=== PATIENT | male | born 1990 | race Caucasian/White ===

== ENCOUNTER 2017-08-26 03:22 | Emergency (ER) | payer OTHER ==
[~2017-08-26] VITALS: Ht 185.4 cm; Wt 110.0 kg
[~2017-08-26 03:22] MED LIST: BACL20TA PO; BUSP10TA PO; CYCL5TAB PO; GABA300C5 PO; MELO7.5T27 PO; OMEP20TA93 PO; SERT-129 PO; TRAM1CAP21 PO; TRAZ100T4 PO
[2017-08-26 03:24] VITALS: BP 121/77; PULSE 114; RESP 16; TEMP 98.3; O2SAT 96
--- NOTE | 2017-08-26 03:37 | PD ---
HPI Chief Complaint: Cold / Flu Symptoms Time Seen by Provider: 03:36 Travel History International Travel<30 days: No Contact w/Intl Traveler<30days: No Traveled to known affect area: No History of Present Illness HPI 27-year-old male presents to emergency department for evaluation of fever, sore throat, cough and chest congestion worsening over last 3 days. Patient states he has had body aches. He had one episode of vomiting today. Reports head pressure but no significant pain. Denies any other symptoms at this time. PFSH Past Medical History Arthritis: Yes (Back) Asthma: No Depression: Yes High Cholesterol: No Chest Pain: No Diabetes: No Musculoskeletal: Yes (Chronic back pain) Immunizations Current: Yes Past Surgical History Other Surgery: Yes (CYST REMOVAL ON BACK) Social History Alcohol Use: No Tobacco Use: Yes (08/21 PPD) Substance Use: No Allergies-Medications (Allergen,Severity, Reaction): Coded Allergies: sulfamethoxazole (Unverified Allergy, Severe, Rash, 08/26/17) trimethoprim (Unverified Allergy, Severe, Rash, 08/26/17) Reported Meds & Prescriptions Reported Meds & Active Scripts Active Reported Tramadol ER 24 HR (Tramadol HCl) 100 Mg Caper 50 Mg PO TID Sertraline (Sertraline HCl) 100 Mg Tab 200 Mg PO DAILY Omeprazole 20 Mg Tab 20 Mg PO DAILY Meloxicam 7.5 Mg Tab 7.5 Mg PO DAILY Gabapentin 300 Mg Cap 300 Mg PO BID Flexeril (Cyclobenzaprine HCl) 5 Mg Tab 5 Mg PO HS Buspirone (Buspirone HCl) 10 Mg Tab 10 Mg PO BID Baclofen 20 Mg Tab 20 Mg PO BID Review of Systems Except as stated in HPI: all other systems reviewed are Neg Physical Exam Narrative GENERAL: Well-nourished male patient, in no acute distress. SKIN: Focused skin assessment warm/dry. HEAD: Atraumatic. Normocephalic. EYES: Pupils equal and round. No scleral icterus. No injection or drainage. ENT: No nasal bleeding or discharge. Mucous membranes pink and moist. Pharynx with 2+ tonsillar edema, erythema, and scattered exudate. NECK: Trachea midline. No JVD. Anterior cervical lymphadenopathy. CARDIOVASCULAR: Tachycardic rate and rhythm. No murmur appreciated. RESPIRATORY: No accessory muscle use. Clear to auscultation. Breath sounds equal bilaterally. GASTROINTESTINAL: Abdomen soft, non-tender, nondistended. Hepatic and splenic margins not palpable. MUSCULOSKELETAL: No obvious deformities. No clubbing. No cyanosis. No edema. NEUROLOGICAL: Awake and alert. No obvious cranial nerve deficits. Motor grossly within normal limits. Normal speech. PSYCHIATRIC: Appropriate mood and affect; insight and judgment normal. Data Data Last Documented VS Vital Signs Date Time Temp Pulse Resp B/P (MAP) Pulse Ox O2 Delivery O2 Flow Rate FiO2 08/26/17 03:24 98.3 114 16 121/77 (92) 96 Room Air Orders Orders Group A Rapid Strep Screen (08/26/17 03:41) Influenzae A/B Antigen (08/26/17 03:41) Dexamethasone Inj (Decadron Inj) (08/26/17 03:45) Strep Culture (Group A) (08/26/17 03:45) MDM Medical Decision Making Medical Screen Exam Complete: Yes Emergency Medical Condition: Yes Medical Record Reviewed: Yes Differential Diagnosis Strep pharyngitis versus viral pharyngitis versus pneumonia versus influenza versus common cold Narrative Course 27-year-old male presents to emergency department for evaluation. Patient appears without distress. He is tachycardic and he does still warm although he is afebrile here. Pharynx is significantly erythematous, edematous, scattered exudate. Patient given Decadron while here. Influenza screen and rapid strep screen are sent for evaluation and both are negative. Patient was discharged home short course oral steroids, he is encouraged follow-up the primary care provider, and return immediately with any acute worsening symptoms. Diagnosis Primary Impression: Viral illness Additional Impression: Pharyngitis Qualified Codes: J02.9 - Acute pharyngitis, unspecified Referrals: Primary Care Physician Patient Instructions: General Instructions, Influenza (ED), Pharyngitis (ED) Additional Instructions: Avoid abrasive an acidic foods Warm salt water gargles may help to alleviate symptoms Your throat swab will be sent for culture. If it does grow strep, he'll be contacted and started on oral antibiotics Humidified air may help to alleviate symptoms Tylenol or ibuprofen as struck on the package as needed for fever and/or pain Rest Maintain adequate oral hydration Return immediately to the emergency department with any acute worsening symptoms. Med/Other Pt SpecificInfo: Prescription(s) given Scripts Benzonatate (Tessalon Perles) 100 Mg Cap 200 MG PO TID Y for COUGH, #20 CAP 0 Refills Prov: Ivette Galicia 08/26/17 Prednisone (Prednisone) 50 Mg Tab 50 MG PO DAILY for 5 Days, #5 TAB 0 Refills Prov: Ivette Galicia 08/26/17 Disposition: 01 DISCHARGE HOME Condition: Stable Ivette Galicia Aug 26, 2017 03:37
[2017-08-26] MEDS ORDERED: DEXAMETHASONE SOD PHOS 4 MG/ML VIAL IM ONE (03:45)
[2017-08-26] MEDS ORDERED: PRED50 PO (04:19)
[2017-08-26] MEDS ORDERED: BENZ100 PO (04:19)
== END 2017-08-26 04:37 | disposition home or self-care (01) ==
LOC: NEPD 03:22
DX: B34.9 Viral infection, unspecified (principal); J02.9 Acute pharyngitis, unspecified; Z72.0 Tobacco use
CPT/HCPCS: 87081; 87804; 87880; 96372; 99284; J1100